=== PATIENT | female | born 1935 | race Caucasian/White ===

== ENCOUNTER 2016-11-15 13:45 | Inpatient (IN) | payer MEDICARE ==
[~2016-11-15] VITALS: Ht 162.6 cm; Wt 89.4 kg
--- NOTE | ~2016-11-15 | DS ---
PATIENT:GISSELLE LUNA :37 MEDICAL RECORD: [id number] DISCHARGE SUMMARY ADMISSION DATE: 11/15/16 DISCHARGE DATE: 11/18/16 DATE OF ADMISSION: 11/15/2016 DATE OF DISCHARGE: 11/18/2016 ADMITTING DIAGNOSES: 1. Lower gastrointestinal bleed. 2. Coronary artery disease. 3. Type 2 diabetes. 4. History of CVA. 5. Acute kidney injury. DISCHARGE DIAGNOSES: 1. Lower gastrointestinal bleed secondary to bleeding from recent biopsy site. 2. Type 2 diabetes. 3. Coronary artery disease. 4. History of cerebrovascular accident. 5. Kidney injury, resolved. 6. Status post recent colonoscopy. CONSULTING PHYSICIANS: Dr. Giles. BRIEF HISTORY AND HOSPITAL COURSE: This is a pleasant 81-year-old white female that presents with chrissy blood per rectum and had a colonoscopy [address] Becerra. She held her Plavix and aspirin prior to the procedure, but resumed it immediately afterwards. She has had some near syncope today, fatigue and weakness, had some left chest pain. She underwent a catheterization with PTCA with Resolute stent back in May per Dr. Haines. She is admitted and serial H&Hs were performed. She did require transfusion of a total of 3 units of packed red cells. I had her seen in consultation by Dr. Giles. She did a repeat colonoscopy. She was found to have stigmata of recent bleeding from biopsy site. Her Plavix and aspirin were held and her H&Hs finally have stabilized. She has had no chrissy bleeding for the last 48 hours. Her H&H is stable. Discharge H&H is 11.4 and 32.8 with a BUN of 16 and creatinine of 1.1. Potassium is a little bit low at 3.1. She will go home with supplementation. I spoke with cardiology communications electrician supervisor, Dr. Martell and he is agreeable withholding Plavix and aspirin for an additional week, then the patient can resume. We will have house-call to see the patient on Sunday or Sunday. Her primary care physician is Dr. Nguyễn. She will need to contact Dr. Becerra for followup appointment with him in the next week or 2. See [facility] for meds at the time of transfer. Again, Plavix and Lasix will be on hold for another week. TRANSINT:[id number] Voice Confirmation ID: [id number] DOCUMENT ID: [id number] DISCHARGE SUMMARY REPORT [id number] GISSELLE LUNA MATTHEW DO CC: BEVERLEY BECERRA MD and WILLIAN NGUYỄN MD [id number] DICTATION DATE: 11/18/16 1156 PROFESSIONAL BUILDER: 11/18/16 2314 DIS IN 11/18/16 [facility] [address] [id number]
[~2016-11-15 13:45] MED LIST: ACCUPRIL40 MG PO; ASPIRIN325 MG PO; BAYER CHEWABLE81 MG PO; BIOTIN5 MG PO; CALCIUM 500 + D1 TAB PO; CARDURA2 MG PO; CATAPRES0.2 MG PO; COSOPT EYE DROPS5 ML LEFT EYE; GLIPIZIDE10 MG PO; GLUCOPHAGE1000 MG PO; HYDROCODON-ACE1 EAC9 PO; IMDUR30 MG PO; ISOSORBIDE MONO30 M1; KLONOPIN0.5 MG PO; LANTUS SOL100 UNIT/1 SQ; LASIX20 MG PO; LEVAQUIN500 MG PO; LUMIGAN 0.01%2.5 ML LEFT EYE; NEURONTIN 300300 MG PO; NORVASC5 MG PO; PLAVIX75 MG PO; PRAVACHOL40 MG PO; PRILOSEC20 MG PO; TOPROL XL25 MG PO; TRANDATE100 MG PO; TYLENOL 325 MG325 MG PO; ULTRAM50 MG PO; VITAMIN D31000 UNIT PO; ZANAFLEX4 MG PO; ZOFRAN4 MG PO; ZYRTEC10 MG PO
[2016-11-15 14:31] LABS: BASOPHILS 0.4 % (0-2); EOSINOPHILS 2.2 % (0-7); HEMATOCRIT 29.2 % (36.0-48.0); IMMATURE GRANULOCYTES 0.1 % (0-5); LYMPHOCYTES 28.3 % (15-50); MCH 30.5 pg (26.0-34.0); MCHC 34.2 g/dL (31.0-37.0); MEAN PLATELET VOLUME 10.3 fL (7.4-10.4); MONOCYTES 5.6 % (2-11); NEUTROPHILS 63.4 % (40-80); PLATELET COUNT 199 10x3/uL (130-400); RBC 3.28 10x6/uL (4.00-5.40); RDW 13.2 % (11.5-14.5)
[2016-11-15 14:42] LABS: APTT 31.9 SECONDS (22.8-39.4); INR 1.23 (0.85-1.17); PROTIME 15.3 SECONDS (11.6-15.0)
[2016-11-15 14:49] LABS: ALBUMIN 2.9 g/dL (3.4-5.0); ANION GAP 15.5 mmol/L (8-16); BILIRUBIN - TOTAL 0.47 mg/dL (0.2-1.3); CALCIUM 8.2 mg/dL (8.5-10.1); CARBON DIOXIDE 24.7 mmol/L (21.0-32.0); CREATININE - SERUM 1.9 mg/dL (0.6-1.3); POTASSIUM - SERUM 4.2 mmol/L (3.5-5.1); PROTEIN - SERUM 5.9 g/dL (6.4-8.2)
[2016-11-15] MEDS ORDERED: VITAMIN A10000 UNIT PO (18:04)
--- NOTE | 2016-11-15 18:05 | NUR ---
PATIENT IN BED WITH IV INTACT. NO COMPLAINTS AT THIS TIME. FAMILY AT BEDSIDE. CALL LIGHT WITHIN REACH. ORIENTED TO ROOM AND CALL LIGHT WITHIN REACH.
[2016-11-15] MEDS ORDERED: MOBIC7.5 MG PO (18:11)
[2016-11-15 19:13] LABS: HEMATOCRIT 27.1 % (36.0-48.0); HEMOGLOBIN 9.3 g/dL (12-16)
[2016-11-15 20:00] VITALS: BP 131/54
[2016-11-15 23:33] LABS: HEMATOCRIT 23.3 % (36.0-48.0); HEMOGLOBIN 8.1 g/dL (12-16)
[2016-11-16 01:39] VITALS: BMI 33.9
--- NOTE | 2016-11-16 07:52 | NUR ---
UNIT 2 OF 2 PRBC'S COMPLETE.PT WITHOUT REACTIONS
--- NOTE | 2016-11-16 08:00 | NUR ---
ASSESSMENT PER FLOW SHEET.PT WITHOUT DISTRESS.DENIES NEEDS.CALL LIGHT IN REACH.FALL PREVENTION IN PLACE WITH LIAT MAT
[2016-11-16 08:21] VITALS: BP 158/84
--- NOTE | 2016-11-16 10:15 | NUR ---
LARGE AMOUNTS OF DARK CLOTS AND BLOOD WITH STOOLS. BP 145/49 HR 66. MONITOR
[2016-11-16 10:58] LABS: EOSINOPHILS 3.5 % (0-7); IMMATURE GRANULOCYTES 0.3 % (0-5); MCH 29.9 pg (26.0-34.0); MCHC 34.7 g/dL (31.0-37.0); MEAN PLATELET VOLUME 10.5 fL (7.4-10.4); MONOCYTES 8.8 % (2-11); NEUTROPHILS 55.4 % (40-80); PLATELET COUNT 165 10x3/uL (130-400); RBC 3.64 10x6/uL (4.00-5.40); RDW 14.5 % (11.5-14.5)
[2016-11-16 11:07] LABS: HEMATOCRIT 31.4 % (36.0-48.0); HEMOGLOBIN 10.9 g/dL (12-16); MCV 86.3 fL (80.0-100.0)
[2016-11-16 11:20] LABS: ALBUMIN 2.9 g/dL (3.4-5.0); ANION GAP 13.2 mmol/L (8-16); BILIRUBIN - TOTAL 1.32 mg/dL (0.2-1.3); CALCIUM 8.2 mg/dL (8.5-10.1); CARBON DIOXIDE 25.8 mmol/L (21.0-32.0); CREATININE - SERUM 1.5 mg/dL (0.6-1.3); PROTEIN - SERUM 6.2 g/dL (6.4-8.2)
[2016-11-16 12:17] VITALS: BP 155/54
--- NOTE | 2016-11-16 12:47 | NUR ---
Patient Name: GISSELLE LUNA Admission Status: ER Accout number: [id number] Admission Date: 11-15-2016 : 1935 Admission Diagnosis: Attending: JAVI ASHBY Current LOS: 1 Anticipated DC Date: 11-20-2016 Planned Disposition: Home Primary Insurance: [facility] Discharge Planning Comments: CM MET WITH PATIENT REGARDING D/C NEEDS AND PLANS. PATIENT STATED SHE LIVES ALONE AND HER DAUGHTER IN LAW (OMAIRA CARROLL)WILL DRIVE HER HOME AT DISCHARGE. PATIENT STATED SHE HAS NO STEPS TO ENTER HOME AND ONE STEP INSIDE. PATIENT STATED SHE IS INDEPENDENT WITH HER CARE AND HAS A BS COMMODE, CANE, GLUCOMETER (CKS DAILY), SHOWER CHAIR, WALKER, AND WHEELCHAIR AT HOME. PATIENTS PCP IS DR. BALDERAS AND USES [facility]. PATIENT DOES NOT WANT HOME HEALTH AT THIS TIME. CM WILL CONTINUE TO FOLLOW PATIENT WITH D/C NEEDS AND PLANS. PCP DR. BALDERAS [facility]- [phone] OMAIRA CARROLL (DAUGHTER IN LAW) [phone] Base Wad Operator Adjuster: Macey Moncada Is the patient Alert and Oriented? Yes 0 * How many steps to enter\exit or inside your home? 1 0 * PCP DR. BALDERAS 0 * Pharmacy [facility] 0 * Preadmission Environment Home Alone 0 * ADLs Independent 0 * Equipment Bedside Commode Cane Glucometer Shower Chair Walker Wheelchair 0 * List name and contact numbers for known caregivers / representatives who currently or will assist patient after discharge: OMAIRA CARROLL (DAUGHTER IN LAW) [phone] 0 * Community resources currently utilized None 0 * Additional services required to return to the preadmission environment? Yes 0 * Can the patient safely return to the preadmission environment? Yes 0 * Has this patient been hospitalized within the prior 30 days at any hospital? No 0 Grand Total: 0
[2016-11-16 13:43] VITALS: Ht 162.6 cm; Wt 89.4 kg
--- NOTE | 2016-11-16 13:52 | NUR ---
SCD'S ON BILATERAL LE
--- NOTE | 2016-11-16 15:38 | NUR ---
BACK FROM GI LAB.PT WITHOUT DISTRESS. AWAKE AND ALERT.DOOR OPEN TO MONITOR
[2016-11-16 17:24] LABS: HEMATOCRIT 29.2 % (36.0-48.0)
--- NOTE | 2016-11-16 18:10 | NUR ---
UNIT 1 OF 2 PRBC'S INITIATED.PT WITHOUT REACTIONS.
[2016-11-17] VITALS: BP 171/76
[2016-11-17 02:02] LABS: HEMATOCRIT 34.1 % (36.0-48.0); HEMOGLOBIN 11.9 g/dL (12-16)
[2016-11-17 04:00] VITALS: BP 181/72
--- NOTE | 2016-11-17 05:00 | NUR ---
PATIENT'S IV LEAKING. D/C IV WITH CATHETER INTACT. PATIENT REFUSED TO GET ANOTHER IV UNTIL SHE TALKS TO THE DOCTOR.
[2016-11-17 07:45] LABS: BASOPHILS 0.4 % (0-2); EOSINOPHILS 3.2 % (0-7); HEMOGLOBIN 11.2 g/dL (12-16); IMMATURE GRANULOCYTES 0.1 % (0-5); LYMPHOCYTES 24.4 % (15-50); MCH 29.9 pg (26.0-34.0); MCV 85.6 fL (80.0-100.0); MEAN PLATELET VOLUME 10.4 fL (7.4-10.4); MONOCYTES 8.6 % (2-11); NEUTROPHILS 63.3 % (40-80); PLATELET COUNT 156 10x3/uL (130-400); RBC 3.74 10x6/uL (4.00-5.40); RDW 14.8 % (11.5-14.5); WBC 6.9 10x3/uL (4.8-10.8)
[2016-11-17 07:59] LABS: ALBUMIN 2.9 g/dL (3.4-5.0); BILIRUBIN - TOTAL 1.71 mg/dL (0.2-1.3); CALCIUM 8.5 mg/dL (8.5-10.1); CARBON DIOXIDE 27.5 mmol/L (21.0-32.0); CREATININE - SERUM 1.2 mg/dL (0.6-1.3); PROTEIN - SERUM 6.1 g/dL (6.4-8.2)
[2016-11-17 08:00] LABS: ANION GAP 11.7 mmol/L (8-16); POTASSIUM - SERUM 3.2 mmol/L (3.5-5.1)
--- NOTE | 2016-11-17 08:00 | NUR ---
ASSESSMENT PER FLOW SHEET.PT WITHOUT DISTRESS.REFUSES IV RESTART THIS AM.REMAINS WITHOUT BLEEDING.FALL PREVENTION IN PLACE WITH LIAT MAT ON AND FUNCTIONING.
[2016-11-17 08:32] VITALS: BP 153/77
[2016-11-17 12:12] VITALS: BP 113/68
[2016-11-17 14:27] LABS: HEMATOCRIT 30.5 % (36.0-48.0); HEMOGLOBIN 10.5 g/dL (12-16)
[2016-11-17 16:04] VITALS: BP 173/76
[2016-11-17 19:03] LABS: HEMATOCRIT 32.7 % (36.0-48.0); HEMOGLOBIN 11.4 g/dL (12-16)
--- NOTE | 2016-11-17 19:40 | NUR ---
REMAINS WITHOUT NEEDS,WITHOUT CHANGE.CONT PLAN OF CARE
[2016-11-17 20:00] VITALS: BP 114/84
[2016-11-18] VITALS: BP 136/70
[2016-11-18 04:00] VITALS: BP 150/89
[2016-11-18 05:35] LABS: BASOPHILS 0.6 % (0-2); EOSINOPHILS 3.4 % (0-7); HEMATOCRIT 32.8 % (36.0-48.0); HEMOGLOBIN 11.4 g/dL (12-16); IMMATURE GRANULOCYTES 0.1 % (0-5); LYMPHOCYTES 31.9 % (15-50); MCHC 34.8 g/dL (31.0-37.0); MCV 86.3 fL (80.0-100.0); MEAN PLATELET VOLUME 10.2 fL (7.4-10.4); MONOCYTES 10.7 % (2-11); NEUTROPHILS 53.3 % (40-80); PLATELET COUNT 158 10x3/uL (130-400); RDW 14.3 % (11.5-14.5); WBC 6.8 10x3/uL (4.8-10.8)
[2016-11-18 05:52] LABS: ALBUMIN 3.1 g/dL (3.4-5.0); ANION GAP 9.7 mmol/L (8-16); BILIRUBIN - TOTAL 1.6 mg/dL (0.2-1.3); CALCIUM 8.9 mg/dL (8.5-10.1); CARBON DIOXIDE 26.4 mmol/L (21.0-32.0); CREATININE - SERUM 1.1 mg/dL (0.6-1.3); POTASSIUM - SERUM 3.1 mmol/L (3.5-5.1); PROTEIN - SERUM 6.3 g/dL (6.4-8.2)
--- NOTE | 2016-11-18 07:00 | NUR ---
REPORT RECIEVED ASSSUMED CARE. PATIENT IN BED WITH NO COMPLAINTS. CALL [facility].
--- NOTE | 2016-11-18 08:00 | NUR ---
ASSESSMENT COMPLETE, VS STABLE. NO COMPLAINTS AT THIS TIME. LEFT ARM WITH OLD IV SITE IN AC RED AND SLIGHT SWELLING. EXPLAINED TO PATIENT TO APPLY ICE PACK. PATIENT STATED IT CAME OUT YESTERDAY. NO OTHER PROBLEMS NOTED AT THIS TIME. CALL LIGHT WITHIN REACH.
[2016-11-18 08:40] VITALS: BP 173/80
[2016-11-18] MEDS ORDERED: KLOR-CON M2020 MEQ PO (11:58)
--- NOTE | 2016-11-18 12:00 | NUR ---
PATIENT SITTING UP EATING AT THIS TIME. NO COMPLAINTS. DENIES NEEDS. CALL LIGHTW ITHIN RILEY.
[2016-11-18 12:39] VITALS: BP 158/70
--- NOTE | 2016-11-18 14:50 | NUR ---
PATIENT RECIEVED DC INSTRUCTIONS. VERBALIZED UNDERSTANDING. NO QUESTIONS AT THIS TIME. FAMILY AT BEDSIDE. TAKEN DOWN TO PRIVATE VEHICLE WITH PERSONAL BELONGINGS VIA WC BY NURSE.
== END 2016-11-18 15:47 | disposition home or self-care (01) | DRG 920 ==
LOC: D.ER 13:45 → D.MS 17:03 → D.M2 17:03 → D.MS 11-18 15:47
PROVIDERS: Emergency Medicine; Internal Medicine Gastroenterology; ADMIT Family Medicine
PROC: 0DJD8ZZ Inspection of Lower Intestinal Tract, Via Natural or Artificial Opening Endoscopic (ICD-10-PCS; principal; 2016-11-16 14:45)
DX: K91.840 Postprocedural hemorrhage of a digestive system organ or structure following a digestive system procedure (principal); N17.9 Acute kidney failure, unspecified; Y84.8 Other medical procedures as the cause of abnormal reaction of the patient, or of later complication, without mention of misadventure at the time of the procedure; R55 Syncope and collapse; E11.65 Type 2 diabetes mellitus with hyperglycemia; I25.10 Atherosclerotic heart disease of native coronary artery without angina pectoris; K64.4 Residual hemorrhoidal skin tags; K64.8 Other hemorrhoids; K63.5 Polyp of colon

== ENCOUNTER → 2016-12-07 09:59 | Outpatient (CLI) | payer MEDICARE ==
[2016-11-16 13:43] VITALS: BMI 33.8
[~2016-12-07 09:59] MED LIST changes: +KLOR-CON M2020 MEQ PO; +MOBIC7.5 MG PO; +VITAMIN A10000 UNIT PO
== END | disposition home or self-care (01) ==
LOC: D.MRI 09:59
DX: R41.3 Other amnesia (principal)

== ENCOUNTER → 2017-01-11 13:01 | Outpatient (CLI) | payer MEDICARE ==
[2016-11-16 13:43] VITALS: BMI 33.8
== END | disposition home or self-care (01) ==
LOC: D.RAD 13:00
DX: K59.00 Constipation, unspecified (principal)

== ENCOUNTER 2017-04-27 15:31 | Inpatient (IN) | payer MEDICARE ==
[~2017-04-27] VITALS: Ht 162.6 cm; Wt 89.1 kg
--- NOTE | ~2017-04-27 | PN ---
PATIENT:GISSELLE LUNA MEDICAL RECORD: [id number] LOCATION:[facility]aser[facility] ADMISSION DATE: 04/27/17 PROGRESS NOTE DATE OF SERVICE: 05/03/2017 SUBJECTIVE: The patient's case was discussed with staff. She has no new complaint. OBJECTIVE: The patient is in good behavioral control and has no thoughts of harming herself or others. She is significantly and fairly severely impaired cognitively. ASSESSMENT: No change in diagnoses. PLAN: The patient has had no ongoing hallucinations. She is going to be transitioned to assisted living tomorrow. Followup will be with her primary care physician. Her nursing home prognosis is guarded. TRANSINT:[id number] Voice Confirmation ID: [id number] DOCUMENT ID: [id number] CORA HERNANDEZ MD at 1348 CC: [id number] DICTATION DATE: 05/03/17 1503 PUBLIC WORKS TECHNICIAN: 05/03/17 1602 DIS IN 05/04/17 [address] [place] [address]
--- NOTE | ~2017-04-27 | PN ---
PATIENT:GISSELLE LUNA MEDICAL RECORD: [id number] LOCATION:VINAY[facility] Glaser112 ADMISSION DATE: 04/27/17 PROGRESS NOTE DATE OF SERVICE: 05/01/2017 SUBJECTIVE: The patient's case was discussed with staff. She has no new complaint. OBJECTIVE: The patient is in good behavioral control with limited insight about her condition. She tolerates her medicines well. ASSESSMENT: No change in diagnoses. PLAN: The patient has had no hallucinations and is in good behavioral control. Her family is making arrangements for her to go to assisted living and I very much agree with this. She can be transitioned out of the hospital in a day or two once the arrangements are made for the assisted living apartment. I have spoken with her about this and she does not object; however, she does object when I tell her she should not drive anymore. TRANSINT:[id number] Voice Confirmation ID: [id number] DOCUMENT ID: [id number] CORA HERNANDEZ MD at 1731 CC: [id number] DICTATION DATE: 05/01/17 1456 INSTRUCTIONAL SUPPORT SERVICES DIRECTOR: 05/01/17 1504 ADM IN [facility] [address] [id number]
--- NOTE | ~2017-04-27 | PSY ---
PATIENT NAME:GISSELLE LUNA MEDICAL RECORD: [id number] : 37 LOCATION:VINAYAK Nielsen ADMISSION DATE: 04/27/17 ACCOUNT: [id number] PSYCHIATRIC EVALUATION DATE OF EVALUATION: 04/28/17 IDENTIFYING DATA: The patient is 81 years old and she is referred to us by Dr. Manzano. HISTORY OF PRESENT ILLNESS: The patient lives alone. Her spouse about 5 years ago. She has become increasingly forgetful and has been having some recent hallucinations. She describes as seeing a little boy whom she identifies as her youngest son. He sometimes in bed with her, he sometimes is just present in the room with her. She denies depressive symptoms, but when asked about individual symptoms of depression, she does report them. She does have a history of diabetes and she is having trouble cooking at home. She says she becomes easily frustrated and is indeed having difficulty finding words to express herself or answer questions appropriately. PAST MEDICAL HISTORY: Significant for diabetes, hypertension, and chronic back pain. PAST PSYCHIATRIC HISTORY: None by her account. She has never been diagnosed with dementia and she has had some mild depressive symptoms, which her primary care doctor has been treating with an SSRI. FAMILY PSYCHIATRIC HISTORY: Unknown. ALLERGIES: SULFA, PENICILLIN, and CODEINE. CURRENT MEDICATIONS: Include Glucotrol, Glucophage, Celexa, Cardura, Norvasc, Lantus, Lasix, Ultram, Klonopin, Accupril, Lopressor, and multiple vitamins. SOCIAL HISTORY: The patient has been twice. Her first after 30 years of marriage. She has 2 adult sons from that marriage, one of them is our current transmission mechanic. The second a few years ago. Obviously, they had no children together. She functioned well socially and occupationally and has no history of drug or alcohol abuse. MENTAL STATUS EXAMINATION: The patient is awake, alert, and oriented to person, place and somewhat to time and situation. Her mood is euthymic and her affect is appropriate. Thought processes are circumstantial. Memory, concentration, and abstraction abilities are at least moderately impaired and she denies any active intent to harm herself or others as well as any overt psychotic symptoms. ASSETS: Supportive living environment. LIABILITIES: Limited insight. DIAGNOSTIC IMPRESSION: AXIS I: Vascular dementia and major depression, mild. AXIS II: None. AXIS III: Hypertension, diabetes. AXIS IV: Moderate stressors. AXIS V: Global assessment of functioning is 35. PLAN: At this time, the patient is admitted to the hospital secondary to significant memory loss, associated with some delusions. She will be comprehensively evaluated from both a medical, psychological, and social standpoint. She will be treated with both mood stabilizing and memory enhancing medications. Her long-term prognosis is guarded. TRANSINT:[id number] Voice Confirmation ID: [id number] DOCUMENT ID: [id number] CORA HERNANDEZ MD at 1355 CC: [id number] DICTATION DATE: 04/28/17 0829 CHEERLEADING COACH: 04/28/17 1110 ADM IN [address] [address]
--- NOTE | ~2017-04-27 | PN ---
PATIENT:GISSELLE LUNA MEDICAL RECORD: [id number] LOCATION:[facility]AK Glaser112 ADMISSION DATE: 04/27/17 PROGRESS NOTE DATE OF SERVICE: 05/04/2017 SUBJECTIVE: No new complaint. OBJECTIVE: The patient has been stable. She is tolerating medications well. She is scheduled for discharge. On exam, mood is euthymic. Affect bland. Speech is terse. Content of thought is unchanged. Sensorium is unchanged. ASSESSMENT: No change in diagnosis. PLAN: 1. Continue current treatment plan. 2. Anticipate discharge today. TRANSINT:[id number] Voice Confirmation ID: [id number] DOCUMENT ID: [id number] TODD GOMEZ III, MD at 1142 CC: [id number] DICTATION DATE: 05/04/17 1211 PROMOTOR GROUP TICKET SALES: 05/04/17 1218 DIS IN 05/04/17 [address] [place] [address]
--- NOTE | ~2017-04-27 | PN ---
PATIENT:GISSELLE LUNA MEDICAL RECORD: [id number] LOCATION:V[facility]AYAK Glaser112 ADMISSION DATE: 04/27/17 PROGRESS NOTE DATE OF SERVICE: 05/02/2017 SUBJECTIVE: The patient's case was discussed with staff. She has no new complaint. OBJECTIVE: The patient is in good behavioral control with no thoughts of harming herself or others. She is tolerating her medications well. ASSESSMENT: No change in diagnoses. PLAN: Supportive and educational interventions were made. [facility] prognosis is guarded. The patient is going to be transitioned to an assisted living center soon. TRANSINT:[id number] Voice Confirmation ID: [id number] DOCUMENT ID: [id number] CORA HERNANDEZ MD at 1459 CC: [id number] DICTATION DATE: 05/02/17 173 HARNESS INSPECTOR: 05/02/17 1817 ADM IN [address] [id number]
--- NOTE | ~2017-04-27 | PN ---
PATIENT:GISSELLE LUNA MEDICAL RECORD: [id number] LOCATION:VINAYAK Glaser112 ADMISSION DATE: 04/27/17 PROGRESS NOTE DATE OF SERVICE: 04/30/2017 SUBJECTIVE: The patient's case was discussed with staff. She has no new complaint. OBJECTIVE: The patient was tested by Dr. Nena Jean and scored 18 out of 30 on the [facility] Cognitive evaluation exam. This places her on the borderline between severe and moderate impairment. Interestingly, she still is oriented. She has not had any psychotic symptoms today. ASSESSMENT: No change in diagnoses. PLAN: I am not going to start this patient on antipsychotic medications. Whatever hallucinatory experiences she was having have stopped since coming into the hospital and it may well be related to her lack of environmental stimulation that she was having some perceptual changes. I spoke with her about her testing today, she is clearly very upset about it. She thinks she is going to be placed in a shelter, but I do not think she needs shelter placement even though she does meet criteria for it. I also do not think she should be living at home independently. I spoke with her about various options such as living with one of her children or relative or perhaps assisted living. She does not want to live with her children because she feels she will be a burden to them. She says she will consider assisted living. She was given quite a lot to digest today and clearly is distressed about it. I am going to let the director social service talk with her family about this situation and hopefully tomorrow, we can have some tentative plan about what we need to do and assuming that she has no additional psychotic symptoms, I do not think it is unreasonable to start looking at a discharge date. TRANSINT:[id number] Voice Confirmation ID: [id number] DOCUMENT ID: [id number] CORA HERNANDEZ MD at 1446 CC: [id number] DICTATION DATE: 04/30/17 1412 EXHAUST MACHINE OPERATOR: 04/30/17 1450 ADM IN [id number] [place] [address]
--- NOTE | ~2017-04-27 | DS ---
PATIENT:GISSELLE LUNA :37 MEDICAL RECORD: [id number] DISCHARGE SUMMARY ADMISSION DATE: 04/27/17 DISCHARGE DATE: 05/04/17 IDENTIFYING DATA: The patient is [id number] and she was admitted to the hospital on a voluntary basis after being referred here by her primary care physician. She does live alone. Her spouse about 5 years ago. Recently, she has become increasingly forgetful and has been having some active hallucinations. She describes this and has seen a little boy whom she identifies as her youngest son. He sometimes is in bed with her and sometimes is just present in the room. She denied depressive symptoms, but when asked about the individual symptoms consistent with depression, she reported many of them. She does have history of diabetes and also has trouble with some of the basic skills she needs to have at home. She is easily frustrated and has often had difficulty finding words when questioned. HOSPITAL COURSE: The patient was admitted to the hospital and fully evaluated from both a medical, psychological, and social standpoint. She had clear evidence of a cognitive impairment and symptoms appear to be consistent with a vascular dementia. She also has clear evidence of the depression that I thought was treating even though it was not severe. She was treated with medications for both of these conditions. She did show improvement and appropriate placement was arranged for her. DISCHARGE DIAGNOSES: AXIS I: 1. Vascular dementia. 2. Major depression, single episode, mild without psychotic features. AXIS II: None. AXIS III: Diabetes and hypertension. AXIS IV: Moderate stressors. AXIS V: Global assessment of functioning is 40. PLAN: At the time of discharge, the patient was in good behavioral control and had no active thoughts of harming herself or others. She did not represent an acute risk to herself or others. Her long-term prognosis is guarded. TRANSINT:[id number] Voice Confirmation ID: [id number] DOCUMENT ID: [id number] CROA HERNANDEZ MD at 1224 CC: [id number] DICTATION DATE: 05/08/17 1448 BOTTLER: 05/08/17 1617 DIS IN 05/04/17 [id number] [place] [address]
[~2017-04-27 15:31] MED LIST changes: -ISOSORBIDE MONO30 M1; +ISOSORBIDE MONO30 M1 PO
[2017-04-27 16:26] VITALS: BP 107/74; BMI 33.8
[2017-04-27] MEDS ORDERED: KLONOPIN0.5 MG PO (17:50)
[2017-04-27] MEDS ORDERED: CELEXA10 MG PO (17:50)
[2017-04-27] MEDS ORDERED: NORVASC10 MG PO (17:50)
[2017-04-27] MEDS ORDERED: COSOPT EYE DROPS5 ML EACH EYE (17:52)
[2017-04-27] MEDS ORDERED: CARDURA2 MG PO (17:52)
[2017-04-27] MEDS ORDERED: FUROSEMIDE20 MG PO (17:54)
[2017-04-27] MEDS ORDERED: GLIPIZIDE10 MG PO (17:55)
[2017-04-27] MEDS ORDERED: ISOSORBIDE MONO30 M1 PO (17:55)
[2017-04-27] MEDS ORDERED: NORMODYNE / TR100 MG PO (17:56)
[2017-04-27] MEDS ORDERED: LANTUS SOL100 UNIT/1 SC (17:56)
[2017-04-27] MEDS ORDERED: GLUCOPHAGE1000 MG PO (17:57)
[2017-04-27] MEDS ORDERED: METOPROLOL TART50 MG PO (17:57)
[2017-04-27] MEDS ORDERED: PROCTOCORT28.35 GM RC (17:58)
[2017-04-27] MEDS ORDERED: ULTRAM50 MG PO (17:59)
[2017-04-27] MEDS ORDERED: ACCUPRIL40 MG PO (17:59)
[2017-04-27] MEDS ORDERED: VITAMIN A10000 UNIT PO (18:01)
[2017-04-27] MEDS ORDERED: VITAMIN D31000 UNIT PO (18:01)
[2017-04-27] MEDS ORDERED: ZYRTEC10 MG PO (18:01)
[2017-04-27 20:22] VITALS: BP 151/65
[2017-04-28 09:25] LABS: BASOPHILS 0.3 % (0-2); EOSINOPHILS 2.6 % (0-7); HEMATOCRIT 40.6 % (36.0-48.0); HEMOGLOBIN 13.7 g/dL (12-16); IMMATURE GRANULOCYTES 0.3 % (0-5); LYMPHOCYTES 29.8 % (15-50); MCH 29.5 pg (26.0-34.0); MCHC 33.7 g/dL (31.0-37.0); MCV 87.5 fL (80.0-100.0); MEAN PLATELET VOLUME 10.3 fL (7.4-10.4); MONOCYTES 7.7 % (2-11); NEUTROPHILS 59.3 % (40-80); PLATELET COUNT 229 10x3/uL (130-400); RBC 4.64 10x6/uL (4.00-5.40); RDW 13.5 % (11.5-14.5); WBC 7.7 10x3/uL (4.8-10.8)
[2017-04-28 09:43] LABS: ALBUMIN 3.2 g/dL (3.4-5.0); ANION GAP 15.9 mmol/L (8-16); BILIRUBIN - TOTAL 0.65 mg/dL (0.2-1.3); CALCIUM 8.9 mg/dL (8.5-10.1); CARBON DIOXIDE 23.8 mmol/L (21.0-32.0); CHOL - HDL RATIO 6.3 ratio (2.3-4.1); CREATININE - SERUM 1.1 mg/dL (0.6-1.3); LDL-HDL RATIO 3.6 ratio (1.5-3.5); POTASSIUM - SERUM 3.7 mmol/L (3.5-5.1); PROTEIN - SERUM 7.6 g/dL (6.4-8.2); THYROID STIMULATING HORMONE 4.84 uIU/mL (0.36-3.74)
[2017-04-28 09:57] VITALS: BP 182/109
[2017-04-28 17:37] LABS: APPEARANCE HAZY (CLEAR); BILIRUBIN NEGATIVE (NEGATIVE); COLOR DK YELLOW (YELLOW); GLUCOSE NEGATIVE (NEGATIVE); KETONE NEGATIVE (NEGATIVE); NITRITE NEGATIVE (NEGATIVE); PROTEIN 1+ mg/dL (NEGATIVE); SPECIFIC GRAVITY 1.025 (1.005-1.020); UROBILINOGEN NORMAL (NORMAL)
[2017-04-28 17:38] LABS: BACTERIA FEW /hpf (NONE SEEN); EPITHELIAL CELLS 0-5 /hpf (0-5)
[2017-04-28 20:01] VITALS: BP 141/70
[2017-04-29 07:00] VITALS: BP 160/91
[2017-04-29 19:30] VITALS: BP 158/87
[2017-04-30 04:06] LABS: VITAMIN D 25 HYDROXY 16.1 ng/mL (30.0-100.0)
[2017-04-30 07:00] VITALS: BP 167/80
[2017-04-30 11:13] LABS: FOLATE (FOLIC ACID) - SERUM 12.2 ng/mL (>3.0)
[2017-04-30 13:51] VITALS: BMI 33.6
[2017-04-30 15:08] VITALS: Ht 162.6 cm; Wt 89.1 kg
[2017-04-30 19:49] VITALS: BP 145/72
[2017-05-01 03:09] LABS: RAPID PLASMA REAGIN Non Reactive (Non Reactive)
[2017-05-01 09:52] VITALS: BP 185/87
[2017-05-01 11:05] VITALS: BP 185/87
[2017-05-01 19:42] VITALS: BP 134/64
[2017-05-02 09:18] VITALS: BP 164/72
[2017-05-02 09:45] VITALS: BP 164/72
[2017-05-02 09:52] VITALS: BP 164/72
[2017-05-02 20:30] VITALS: BP 159/62
[2017-05-03 10:33] VITALS: BP 166/83
[2017-05-03] MEDS ORDERED: PLAVIX75 MG PO (15:05)
[2017-05-03] MEDS ORDERED: FEXOFENADINE HC60 MG PO (15:05)
[2017-05-03] MEDS ORDERED: ISOSORBIDE MONO30 M1 PO (15:06)
[2017-05-03] MEDS ORDERED: VOLTAREN100 GM TOPICAL (15:07)
[2017-05-03] MEDS ORDERED: NAMENDA5 MG PO (15:07)
[2017-05-03] MEDS ORDERED: METAMUCIL FIB1 WAFER PO (15:07)
[2017-05-03] MEDS ORDERED: SYNTHROID25 MCG PO (15:08)
[2017-05-03] MEDS ORDERED: GLUCOPHAGE500 MG PO (15:08)
[2017-05-03] MEDS ORDERED: BACITRACIN 15 G15 GM TOPICAL (15:09)
[2017-05-03] MEDS ORDERED: LIDODERM 5 %1 PATCH TRANSDERM (15:10)
[2017-05-04 09:20] VITALS: BP 169/93
== END 2017-05-04 13:45 | disposition home or self-care (01) | DRG 884 ==
LOC: D.PSYCH 15:31
PROVIDERS: Psychiatry & Neurology Psychiatry
DX: F01.51 Vascular dementia, unspecified severity, with behavioral disturbance (principal); F33.0 Major depressive disorder, recurrent, mild; F41.8 Other specified anxiety disorders; E03.9 Hypothyroidism, unspecified; I10 Essential (primary) hypertension; E11.9 Type 2 diabetes mellitus without complications; I25.10 Atherosclerotic heart disease of native coronary artery without angina pectoris; H40.9 Unspecified glaucoma; K59.09 Other constipation; J30.9 Allergic rhinitis, unspecified; Z74.09 Other reduced mobility; E55.9 Vitamin D deficiency, unspecified; M17.0 Bilateral primary osteoarthritis of knee; M47.819 Spondylosis without myelopathy or radiculopathy, site unspecified; T21.22XA Burn of second degree of abdominal wall, initial encounter; T31.0 Burns involving less than 10% of body surface; X08.8XXA Exposure to other specified smoke, fire and flames, initial encounter

== ENCOUNTER 2017-06-18 10:16 | Inpatient (IN) | payer MEDICARE ==
[~2017-06-18] VITALS: Ht 162.6 cm; Wt 89.5 kg
--- NOTE | ~2017-06-18 | EC ---
PATIENT:GISSELLE LUNA DATE OF SERVICE: 06/20/17 SEX: F MEDICAL RECORD: [id number] DATE OF : 37 LOCATION:D.M2 D.212 AGE OF PATIENT: 81 ADMISSION DATE: 06/20/17 REFERRING PHYSICIAN: INTERPRETING PHYSICIAN: JONATAN HAINES MD ECHOCARDIOGRAM REPORT ECHO CHARGES 4 ECHO COMPLETE Date: 06/19 CLINICAL DIAGNOSIS: ATRIAL FLUTTER ECHOCARDIOGRAPHIC MEASUREMENTS (adult normal given) AC root (d.<3.7cm) 3.8 cm LV Septum d (<1.2 cm> 1.9 cm Valve Excursion 1.7 cm LV Septum (systole) 2.0 cm Left Atria (s.<4.0cm> 4.3 cm LVPW d(<1.2cm) 1.9 cm RV (d.<2.3cm) 3.4 cm LVPW (sytole) 2.0 cm LV diastole(<5.6CM) 4.5 cm MV E-F(>70mm/sec) cm LV systole 3.4 cm LVOT Diameter 1.7 cm MV exc.(>10mm) cm Est.ejection fraction (50-75%) % DOPPLER: LVIT cm/sec A 28.0 cm/sec E 111 cm/sec LA cm/sec RVSP 25 mmHg LVOT 85 cm/sec AOP1/2T m/s Asc. Ao 156 cm/sec RVOT 110 cm/sec RA cm/sec PA 127 cm/sec AV Gradient Peak 9.73 mmHg AV Mean 5.71 mmHg AV Area 1.4 cm MV Gradient Peak 8.32 mmHg MV Mean 2.45 mmHg MV Area cm COMMENTS: Senior Mobile Solutions Architect: Serg IVAN Service Crew Supervisor: 1 Dr. Haines TAPE# PACS Pericardial Effusion N DATE OF SERVICE: PROCEDURE: Echocardiogram. FINDINGS: 1. Left ventricular systolic function is normal. Overall ejection fraction estimated at 55%. 2. The left atrium is enlarged at 4.3 cm. Right atrium and right ventricle chamber sizes are as well mildly dilated. 3. Valvular structures have normal structure and motion. ECHOCARDIOGRAM REPORT [id number] GISSELLE LUNA 4. Doppler interrogation reveals mild aortic insufficiency, mild mitral regurgitation, mild tricuspid regurgitation, no other valvular insufficiency or stenosis. Pulmonary systolic pressure is estimated at 25 mmHg. 5. No evidence of pericardial effusion or left ventricular thrombus. TRANSINT:[id number] Voice Confirmation ID: [id number] DOCUMENT ID: [id number] JONATAN HAINES MD at 1351 CC: [id number] DICTATION DATE: 06/20/17 1127 PRACTICAL NURSING TEACHER: 06/20/17 1353 ADM IN [facility] [address] [id number]
[~2017-06-18 10:16] MED LIST changes: +BACITRACIN 15 G15 GM TOPICAL; +CELEXA10 MG PO; +COSOPT EYE DROPS5 ML EACH EYE; +FEXOFENADINE HC60 MG PO; +FUROSEMIDE20 MG PO; +GLUCOPHAGE500 MG PO; +LANTUS SOL100 UNIT/1 SC; +LIDODERM 5 %1 PATCH TRANSDERM; +METAMUCIL FIB1 WAFER PO; +METOPROLOL TART50 MG PO; +NAMENDA5 MG PO; +NORMODYNE / TR100 MG PO; +NORVASC10 MG PO; +PROCTOCORT28.35 GM RC; +SYNTHROID25 MCG PO; +VOLTAREN100 GM TOPICAL
[2017-06-18 11:24] LABS: BASOPHILS 0.6 % (0-2); EOSINOPHILS 1.5 % (0-7); HEMATOCRIT 42.9 % (36.0-48.0); HEMOGLOBIN 14.8 g/dL (12-16); IMMATURE GRANULOCYTES 0.1 % (0-5); MCHC 34.5 g/dL (31.0-37.0); MEAN PLATELET VOLUME 10.3 fL (7.4-10.4); NEUTROPHILS 61.8 % (40-80); PLATELET COUNT 216 10x3/uL (130-400); RBC 4.93 10x6/uL (4.00-5.40); RDW 13.4 % (11.5-14.5); WBC 6.7 10x3/uL (4.8-10.8)
[2017-06-18 11:36] LABS: ALBUMIN 3.2 g/dL (3.4-5.0); ANION GAP 13.6 mmol/L (8-16); BILIRUBIN - TOTAL 0.7 mg/dL (0.2-1.3); CALCIUM 8.7 mg/dL (8.5-10.1); CREATININE - SERUM 1.1 mg/dL (0.6-1.3); POTASSIUM - SERUM 3.6 mmol/L (3.5-5.1); PROTEIN - SERUM 7.4 g/dL (6.4-8.2)
[2017-06-18 11:42] LABS: APPEARANCE HAZY (CLEAR); BILIRUBIN NEGATIVE (NEGATIVE); COLOR DK YELLOW (YELLOW); GLUCOSE 50 mg/dL (NEGATIVE); KETONE NEGATIVE (NEGATIVE); NITRITE NEGATIVE (NEGATIVE); PROTEIN 3+ mg/dL (NEGATIVE)
[2017-06-18 11:43] LABS: BACTERIA MODERATE /hpf (NONE SEEN); EPITHELIAL CELLS 0-5 /hpf (0-5); GRANULAR CAST RARE /lpf (NONE SEEN); MUCUS >1+ /lpf (NONE SEEN); WHITE CELLS - URINE 0-5 /hpf (0-5)
[2017-06-18 12:37] LABS: INR 1.08 (0.85-1.17); PROTIME 13.6 SECONDS (11.6-15.0)
[2017-06-18 12:38] LABS: APTT 33.8 SECONDS (22.8-39.4)
[2017-06-18] MEDS ORDERED: LUMIGAN 0.01%2.5 ML LEFT EYE (20:46)
[2017-06-18] MEDS ORDERED: FLUTICASONE PRO16 GM NASAL (20:48)
[2017-06-18] MEDS ORDERED: FUROSEMIDE20 MG PO (20:55)
[2017-06-18] MEDS ORDERED: BETAPACE 80 MG80 MG PO (20:57)
[2017-06-18 21:23] VITALS: BP 150/110
[2017-06-19 00:39] VITALS: BMI 33.9
[2017-06-19 02:34] VITALS: BP 153/109
[2017-06-19 05:28] VITALS: BP 102/70
[2017-06-19 05:43] LABS: BASOPHILS 0.5 % (0-2); EOSINOPHILS 2.6 % (0-7); HEMATOCRIT 40.8 % (36.0-48.0); HEMOGLOBIN 13.8 g/dL (12-16); IMMATURE GRANULOCYTES 0.2 % (0-5); LYMPHOCYTES 36.3 % (15-50); MCH 29.5 pg (26.0-34.0); MCHC 33.8 g/dL (31.0-37.0); MCV 87.2 fL (80.0-100.0); MEAN PLATELET VOLUME 10.5 fL (7.4-10.4); MONOCYTES 8.2 % (2-11); NEUTROPHILS 52.2 % (40-80); PLATELET COUNT 187 10x3/uL (130-400); RBC 4.68 10x6/uL (4.00-5.40); RDW 13.3 % (11.5-14.5); WBC 5.8 10x3/uL (4.8-10.8)
[2017-06-19 06:03] LABS: CALCIUM 8.2 mg/dL (8.5-10.1); CARBON DIOXIDE 24.5 mmol/L (21.0-32.0); CREATININE - SERUM 0.9 mg/dL (0.6-1.3); POTASSIUM - SERUM 3.5 mmol/L (3.5-5.1)
[2017-06-19 08:35] VITALS: BP 152/89
[2017-06-19 11:35] VITALS: BP 165/109
[2017-06-19 20:00] VITALS: BP 146/76
[2017-06-20 04:00] VITALS: BP 143/76
[2017-06-20 07:40] LABS: BASOPHILS 0.3 % (0-2); EOSINOPHILS 2.1 % (0-7); HEMATOCRIT 42.7 % (36.0-48.0); HEMOGLOBIN 14.7 g/dL (12-16); IMMATURE GRANULOCYTES 0.2 % (0-5); LYMPHOCYTES 34.7 % (15-50); MCH 29.8 pg (26.0-34.0); MCHC 34.4 g/dL (31.0-37.0); MCV 86.6 fL (80.0-100.0); MEAN PLATELET VOLUME 10.2 fL (7.4-10.4); MONOCYTES 7.8 % (2-11); NEUTROPHILS 54.9 % (40-80); PLATELET COUNT 199 10x3/uL (130-400); RBC 4.93 10x6/uL (4.00-5.40); RDW 13.3 % (11.5-14.5); WBC 6.6 10x3/uL (4.8-10.8)
[2017-06-20 08:00] VITALS: BP 162/92
[2017-06-20 08:17] LABS: ANION GAP 12.6 mmol/L (8-16); CALCIUM 9.1 mg/dL (8.5-10.1); CARBON DIOXIDE 27.2 mmol/L (21.0-32.0); CREATININE - SERUM 0.9 mg/dL (0.6-1.3); POTASSIUM - SERUM 3.8 mmol/L (3.5-5.1)
[2017-06-20 11:39] VITALS: BP 164/82
[2017-06-20 15:52] VITALS: BP 149/96
[2017-06-20 20:58] VITALS: BP 173/85
[2017-06-21 05:58] VITALS: BP 118/74
[2017-06-21 07:49] VITALS: BP 153/96
[2017-06-21 10:57] VITALS: BP 143/82
[2017-06-21 13:06] VITALS: Ht 162.6 cm; Wt 89.5 kg
[2017-06-21 15:11] VITALS: BP 131/79
[2017-06-21 21:42] VITALS: BP 147/56; BP 160/96
[2017-06-22 02:01] VITALS: BP 151/70
[2017-06-22 05:32] VITALS: BP 186/62
[2017-06-22 07:40] VITALS: BP 129/72
[2017-06-22 11:52] VITALS: BP 148/68
[2017-06-22 15:24] VITALS: BP 136/76
[2017-06-22 20:00] VITALS: BP 152/77
[2017-06-23 01:00] VITALS: BP 173/60
[2017-06-23 04:00] VITALS: BP 173/76
[2017-06-23 05:42] LABS: BASOPHILS 0.6 % (0-2); EOSINOPHILS 3.2 % (0-7); HEMATOCRIT 40.7 % (36.0-48.0); HEMOGLOBIN 14.1 g/dL (12-16); IMMATURE GRANULOCYTES 0.2 % (0-5); LYMPHOCYTES 35.5 % (15-50); MCH 29.9 pg (26.0-34.0); MCHC 34.6 g/dL (31.0-37.0); MCV 86.4 fL (80.0-100.0); MEAN PLATELET VOLUME 10.4 fL (7.4-10.4); MONOCYTES 8.3 % (2-11); NEUTROPHILS 52.2 % (40-80); PLATELET COUNT 198 10x3/uL (130-400); RBC 4.71 10x6/uL (4.00-5.40); RDW 13.3 % (11.5-14.5); WBC 6.5 10x3/uL (4.8-10.8)
[2017-06-23 05:51] LABS: ANION GAP 14.5 mmol/L (8-16); CALCIUM 8.7 mg/dL (8.5-10.1); CARBON DIOXIDE 24.9 mmol/L (21.0-32.0); POTASSIUM - SERUM 3.4 mmol/L (3.5-5.1)
[2017-06-23 09:14] VITALS: BP 175/79
[2017-06-23 12:23] VITALS: BP 176/78
[2017-06-23 16:39] VITALS: BP 128/69
[2017-06-23 23:02] VITALS: BP 178/76
[2017-06-24 05:48] VITALS: BP 181/82
[2017-06-24 08:02] VITALS: BP 181/72
[2017-06-24 11:16] VITALS: BP 132/60
[2017-06-24 14:01] LABS: ANION GAP 16.9 mmol/L (8-16); CALCIUM 8.8 mg/dL (8.5-10.1); CARBON DIOXIDE 21.8 mmol/L (21.0-32.0); MAGNESIUM - SERUM 1.9 mg/dL (1.8-2.4); POTASSIUM - SERUM 3.7 mmol/L (3.5-5.1); THYROID STIMULATING HORMONE 1.58 uIU/mL (0.36-3.74)
[2017-06-24 15:01] VITALS: BP 125/71
[2017-06-24 20:00] VITALS: BP 163/70; BP 96/53
[2017-06-25] VITALS: BP 181/72
[2017-06-25 04:00] VITALS: BP 176/71
[2017-06-25 09:17] VITALS: BP 197/89
[2017-06-25 10:44] VITALS: BP 172/76
[2017-06-25 15:17] VITALS: BP 168/79
[2017-06-25 20:49] VITALS: BP 123/75
[2017-06-26 01:03] VITALS: BP 138/57
[2017-06-26 05:01] VITALS: BP 173/61
[2017-06-26 07:46] VITALS: BP 142/71
[2017-06-26 10:36] VITALS: BP 136/66
[2017-06-26 12:15] LABS: BASOPHILS 0.6 % (0-2); HEMATOCRIT 42.7 % (36.0-48.0); IMMATURE GRANULOCYTES 0.2 % (0-5); LYMPHOCYTES 34.4 % (15-50); MCH 30.2 pg (26.0-34.0); MCHC 35.1 g/dL (31.0-37.0); MCV 85.9 fL (80.0-100.0); MEAN PLATELET VOLUME 10.1 fL (7.4-10.4); MONOCYTES 8.6 % (2-11); NEUTROPHILS 53.2 % (40-80); PLATELET COUNT 210 10x3/uL (130-400); RBC 4.97 10x6/uL (4.00-5.40); RDW 13.2 % (11.5-14.5); WBC 6.3 10x3/uL (4.8-10.8)
[2017-06-26 12:40] LABS: ALBUMIN 3.2 g/dL (3.4-5.0); BILIRUBIN - TOTAL 0.66 mg/dL (0.2-1.3); CALCIUM 9.5 mg/dL (8.5-10.1); CARBON DIOXIDE 25.5 mmol/L (21.0-32.0); CREATININE - SERUM 1.1 mg/dL (0.6-1.3); POTASSIUM - SERUM 3.5 mmol/L (3.5-5.1); PROTEIN - SERUM 7.5 g/dL (6.4-8.2)
[2017-06-26 16:15] VITALS: BP 124/47
[2017-06-26 20:00] VITALS: BP 180/85
[2017-06-27] VITALS: BP 158/65
[2017-06-27 04:00] VITALS: BP 188/66
[2017-06-27 05:55] LABS: BASOPHILS 0.5 % (0-2); EOSINOPHILS 3.1 % (0-7); HEMATOCRIT 40.2 % (36.0-48.0); IMMATURE GRANULOCYTES 0.2 % (0-5); LYMPHOCYTES 43.3 % (15-50); MCH 29.9 pg (26.0-34.0); MCHC 34.8 g/dL (31.0-37.0); MCV 85.7 fL (80.0-100.0); MEAN PLATELET VOLUME 10.6 fL (7.4-10.4); MONOCYTES 9.2 % (2-11); NEUTROPHILS 43.7 % (40-80); PLATELET COUNT 185 10x3/uL (130-400); RBC 4.69 10x6/uL (4.00-5.40); RDW 13.3 % (11.5-14.5); WBC 5.9 10x3/uL (4.8-10.8)
[2017-06-27 06:16] LABS: ANION GAP 14.2 mmol/L (8-16); BILIRUBIN - TOTAL 0.6 mg/dL (0.2-1.3); CREATININE - SERUM 1.1 mg/dL (0.6-1.3); POTASSIUM - SERUM 3.2 mmol/L (3.5-5.1); PROTEIN - SERUM 6.8 g/dL (6.4-8.2)
[2017-06-27 08:53] VITALS: BP 153/65
[2017-06-27] MEDS ORDERED: ALDACTONE25 MG PO (09:47)
[2017-06-27] MEDS ORDERED: ASPIRIN EC81 M1 PO (09:49)
[2017-06-27] MEDS ORDERED: KLOR-CON M2020 MEQ PO (09:51)
[2017-06-27] MEDS ORDERED: GLUCOPHAGE500 MG PO (09:55)
== END 2017-06-27 15:56 | DRG 309 ==
LOC: D.ER 10:16 → OBSVTIME 13:40 → D.EDHOLD 13:40 → D.M2 13:40 → D.EDHOLD 13:40 → D.M2 13:40
PROVIDERS: Emergency Medicine; Family Medicine; Internal Medicine Nephrology
DX: I48.91 Unspecified atrial fibrillation (principal); N39.0 Urinary tract infection, site not specified; G45.9 Transient cerebral ischemic attack, unspecified; I48.92 Unspecified atrial flutter; R40.2412 Glasgow coma scale score 13-15, at arrival to emergency department; E78.1 Pure hyperglyceridemia; I25.10 Atherosclerotic heart disease of native coronary artery without angina pectoris; E03.9 Hypothyroidism, unspecified; F41.8 Other specified anxiety disorders; E78.5 Hyperlipidemia, unspecified; G30.9 Alzheimer's disease, unspecified; F02.80 Dementia in other diseases classified elsewhere, unspecified severity, without behavioral disturbance, psychotic disturbance, mood disturbance, and anxiety; I10 Essential (primary) hypertension; E11.9 Type 2 diabetes mellitus without complications; Z86.73 Personal history of transient ischemic attack (TIA), and cerebral infarction without residual deficits

== ENCOUNTER 2017-07-05 12:57 | Inpatient (IN) | payer MEDICARE ==
[~2017-07-05] VITALS: Ht 162.6 cm; Wt 85.2 kg
[~2017-07-05 12:57] MED LIST changes: +ALDACTONE25 MG PO; +ASPIRIN EC81 M1 PO; +BETAPACE 80 MG80 MG PO; +FLUTICASONE PRO16 GM NASAL
[2017-07-05 13:38] LABS: BASOPHILS 0.6 % (0-2); EOSINOPHILS 2.8 % (0-7); HEMATOCRIT 41.5 % (36.0-48.0); HEMOGLOBIN 14.6 g/dL (12-16); LYMPHOCYTES 36.1 % (15-50); MCH 30.5 pg (26.0-34.0); MCHC 35.2 g/dL (31.0-37.0); MCV 86.8 fL (80.0-100.0); MEAN PLATELET VOLUME 10.7 fL (7.4-10.4); MONOCYTES 10.2 % (2-11); NEUTROPHILS 50.3 % (40-80); PLATELET COUNT 215 10x3/uL (130-400); RBC 4.78 10x6/uL (4.00-5.40); RDW 13.4 % (11.5-14.5); WBC 7.3 10x3/uL (4.8-10.8)
[2017-07-05 14:00] LABS: APTT 33.8 SECONDS (22.8-39.4); INR 1.13 (0.85-1.17)
[2017-07-05 14:04] LABS: ALBUMIN 3.3 g/dL (3.4-5.0); ANION GAP 14.8 mmol/L (8-16); BILIRUBIN - TOTAL 0.8 mg/dL (0.2-1.3); CALCIUM 9.3 mg/dL (8.5-10.1); CARBON DIOXIDE 24.7 mmol/L (21.0-32.0); CREATININE - SERUM 0.9 mg/dL (0.6-1.3); POTASSIUM - SERUM 4.5 mmol/L (3.5-5.1); PROTEIN - SERUM 7.7 g/dL (6.4-8.2)
[2017-07-05 18:40] VITALS: BP 210/100; BMI 32.7
[2017-07-05 21:23] VITALS: BP 174/90
[2017-07-06 01:38] VITALS: BP 189/82
[2017-07-06 04:04] LABS: CKMB 0.5 U/L (0.0-3.6); CREATINE KINASE 149 UL (21-215)
[2017-07-06 04:11] LABS: TROPONIN-I 0.148 ng/mL (0.000-0.060)
[2017-07-06 04:53] VITALS: BP 171/74
[2017-07-06 05:15] LABS: BASOPHILS 0.6 % (0-2); EOSINOPHILS 2.5 % (0-7); IMMATURE GRANULOCYTES 0.5 % (0-5); LYMPHOCYTES 36.2 % (15-50); MCH 29.7 pg (26.0-34.0); MCHC 34.1 g/dL (31.0-37.0); MCV 86.9 fL (80.0-100.0); MEAN PLATELET VOLUME 10.5 fL (7.4-10.4); MONOCYTES 6.8 % (2-11); NEUTROPHILS 53.4 % (40-80); PLATELET COUNT 213 10x3/uL (130-400); RBC 4.72 10x6/uL (4.00-5.40); RDW 13.2 % (11.5-14.5); WBC 6.3 10x3/uL (4.8-10.8)
[2017-07-06 05:32] LABS: ALBUMIN 3.2 g/dL (3.4-5.0); ANION GAP 14.9 mmol/L (8-16); BILIRUBIN - TOTAL 0.58 mg/dL (0.2-1.3); CALCIUM 9.2 mg/dL (8.5-10.1); CARBON DIOXIDE 25.1 mmol/L (21.0-32.0); CHOL - HDL RATIO 6.8 ratio (2.3-4.1); CREATININE - SERUM 0.9 mg/dL (0.6-1.3); LDL-HDL RATIO 2.5 ratio (1.5-3.5)
[2017-07-06 09:09] VITALS: BP 178/81
[2017-07-06 10:20] VITALS: BMI 32.2
[2017-07-06 11:45] LABS: CKMB 0.7 U/L (0.0-3.6); CREATINE KINASE 135 UL (21-215); TROPONIN-I 0.149 ng/mL (0.000-0.060)
[2017-07-06 11:53] VITALS: BP 163/70
[2017-07-06 12:26] VITALS: Ht 162.6 cm; Wt 85.2 kg
[2017-07-06 16:24] LABS: CKMB 1.7 U/L (0.0-3.6); CREATINE KINASE 129 UL (21-215)
[2017-07-06 16:28] LABS: TROPONIN-I 0.149 ng/mL (0.000-0.060)
[2017-07-06 16:50] VITALS: BP 173/83
[2017-07-06 22:57] VITALS: BP 195/75
[2017-07-07 05:19] LABS: BASOPHILS 0.3 % (0-2); EOSINOPHILS 1.5 % (0-7); HEMATOCRIT 42.6 % (36.0-48.0); HEMOGLOBIN 14.8 g/dL (12-16); IMMATURE GRANULOCYTES 0.1 % (0-5); LYMPHOCYTES 33.8 % (15-50); MCH 30.3 pg (26.0-34.0); MCHC 34.7 g/dL (31.0-37.0); MCV 87.3 fL (80.0-100.0); MEAN PLATELET VOLUME 10.7 fL (7.4-10.4); MONOCYTES 6.8 % (2-11); NEUTROPHILS 57.5 % (40-80); PLATELET COUNT 239 10x3/uL (130-400); RBC 4.88 10x6/uL (4.00-5.40); RDW 13.4 % (11.5-14.5); WBC 7.3 10x3/uL (4.8-10.8)
[2017-07-07 05:45] LABS: ANION GAP 16.4 mmol/L (8-16); CALCIUM 10.1 mg/dL (8.5-10.1); POTASSIUM - SERUM 4.4 mmol/L (3.5-5.1)
[2017-07-07 05:58] VITALS: BP 131/89
[2017-07-07 08:33] VITALS: BP 191/73
[2017-07-07 11:58] VITALS: BP 178/73
[2017-07-07 16:44] VITALS: BP 180/84
[2017-07-07 21:57] VITALS: BP 229/97
[2017-07-08 05:23] LABS: INR 1.33 (0.85-1.17)
[2017-07-08 05:26] LABS: BASOPHILS 0.8 % (0-2); EOSINOPHILS 1.7 % (0-7); HEMATOCRIT 40.9 % (36.0-48.0); HEMOGLOBIN 13.9 g/dL (12-16); IMMATURE GRANULOCYTES 0.2 % (0-5); LYMPHOCYTES 35.7 % (15-50); MCH 29.8 pg (26.0-34.0); MCV 87.8 fL (80.0-100.0); MEAN PLATELET VOLUME 10.5 fL (7.4-10.4); MONOCYTES 7.2 % (2-11); NEUTROPHILS 54.4 % (40-80); PLATELET COUNT 210 10x3/uL (130-400); RBC 4.66 10x6/uL (4.00-5.40); RDW 13.3 % (11.5-14.5); WBC 6.5 10x3/uL (4.8-10.8)
[2017-07-08 05:38] LABS: ANION GAP 13.3 mmol/L (8-16); CALCIUM 9.3 mg/dL (8.5-10.1); CARBON DIOXIDE 24.5 mmol/L (21.0-32.0); POTASSIUM - SERUM 3.8 mmol/L (3.5-5.1)
[2017-07-08 06:17] VITALS: BP 201/74
[2017-07-08 08:18] VITALS: BP 157/66
[2017-07-08 12:28] VITALS: BP 180/83
[2017-07-08 16:30] VITALS: BP 162/70
[2017-07-09 00:58] VITALS: BP 179/101
[2017-07-09 04:57] LABS: BASOPHILS 0.5 % (0-2); HEMATOCRIT 40.7 % (36.0-48.0); HEMOGLOBIN 13.9 g/dL (12-16); IMMATURE GRANULOCYTES 0.2 % (0-5); LYMPHOCYTES 41.4 % (15-50); MCH 29.7 pg (26.0-34.0); MCHC 34.2 g/dL (31.0-37.0); MEAN PLATELET VOLUME 10.3 fL (7.4-10.4); MONOCYTES 8.5 % (2-11); NEUTROPHILS 47.4 % (40-80); PLATELET COUNT 200 10x3/uL (130-400); RBC 4.68 10x6/uL (4.00-5.40); RDW 13.3 % (11.5-14.5)
[2017-07-09 05:10] LABS: ANION GAP 13.3 mmol/L (8-16); CALCIUM 8.9 mg/dL (8.5-10.1); CARBON DIOXIDE 25.3 mmol/L (21.0-32.0); CREATININE - SERUM 0.9 mg/dL (0.6-1.3); POTASSIUM - SERUM 3.6 mmol/L (3.5-5.1)
[2017-07-09 05:18] LABS: INR 1.43 (0.85-1.17); PROTIME 16.9 SECONDS (11.6-15.0)
[2017-07-09 06:33] VITALS: BP 169/87
[2017-07-09 09:13] VITALS: BP 178/82
[2017-07-09 12:46] VITALS: BP 162/72
[2017-07-09 16:43] VITALS: BP 188/55
[2017-07-09 20:00] VITALS: BP 191/77
[2017-07-10] VITALS: BP 209/86
[2017-07-10 04:00] VITALS: BP 197/81
[2017-07-10 06:17] LABS: BASOPHILS 0.4 % (0-2); HEMATOCRIT 39.7 % (36.0-48.0); HEMOGLOBIN 13.8 g/dL (12-16); IMMATURE GRANULOCYTES 0.1 % (0-5); LYMPHOCYTES 30.4 % (15-50); MCH 30.4 pg (26.0-34.0); MCHC 34.8 g/dL (31.0-37.0); MCV 87.4 fL (80.0-100.0); MEAN PLATELET VOLUME 10.5 fL (7.4-10.4); MONOCYTES 7.8 % (2-11); NEUTROPHILS 59.3 % (40-80); PLATELET COUNT 197 10x3/uL (130-400); RBC 4.54 10x6/uL (4.00-5.40); RDW 13.1 % (11.5-14.5)
[2017-07-10 06:20] LABS: WBC 7.7 10x3/uL (4.8-10.8)
[2017-07-10 06:30] LABS: PROTIME 19.9 SECONDS (11.6-15.0)
[2017-07-10 06:32] LABS: INR 1.75 (0.85-1.17)
[2017-07-10 06:49] LABS: CALCIUM 9.2 mg/dL (8.5-10.1); CARBON DIOXIDE 23.7 mmol/L (21.0-32.0); CREATININE - SERUM 0.9 mg/dL (0.6-1.3); POTASSIUM - SERUM 3.7 mmol/L (3.5-5.1)
[2017-07-10 08:33] VITALS: BP 180/96
[2017-07-10] MEDS ORDERED: COUMADIN5 MG PO (10:31)
[2017-07-10 11:35] VITALS: BP 150/72
[2017-07-10 15:38] VITALS: BP 160/80
[2017-07-10] MEDS ORDERED: PROCARDIA XL PO (16:40)
== END 2017-07-10 18:08 | DRG 65 ==
LOC: D.ER 12:57 → D.EDHOLD 14:43 → OBSVTIME 14:43 → D.M2 14:43
PROVIDERS: Anesthesiology; Emergency Medicine; Family Medicine; Internal Medicine Nephrology
DX: I63.9 Cerebral infarction, unspecified (principal); G81.94 Hemiplegia, unspecified affecting left nondominant side; R47.01 Aphasia; I10 Essential (primary) hypertension; I25.10 Atherosclerotic heart disease of native coronary artery without angina pectoris; F41.8 Other specified anxiety disorders; I48.0 Paroxysmal atrial fibrillation; G30.9 Alzheimer's disease, unspecified; F02.80 Dementia in other diseases classified elsewhere, unspecified severity, without behavioral disturbance, psychotic disturbance, mood disturbance, and anxiety; E78.5 Hyperlipidemia, unspecified; Z74.09 Other reduced mobility; I08.1 Rheumatic disorders of both mitral and tricuspid valves; E03.9 Hypothyroidism, unspecified; R40.2353 Coma scale, best motor response, localizes pain, at hospital admission; R40.2143 Coma scale, eyes open, spontaneous, at hospital admission; R40.2243 Coma scale, best verbal response, confused conversation, at hospital admission; Z95.5 Presence of coronary angioplasty implant and graft; E11.65 Type 2 diabetes mellitus with hyperglycemia

== ENCOUNTER 2017-07-10 13:10 | Inpatient (IN) | payer MEDICARE ==
--- NOTE | ~2017-07-10 | RHP ---
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 HISTORY OF PRESENT ILLNESS: The patient is admitted to inpatient rehab for stroke/acute ischemia in the right cerebellar hemisphere. She is an 81-year-old female patient with history of hypertension, coronary artery disease, status post stent placement, AFib, diabetes, depression, anxiety and Alzheimer's, who presented to the ER with complaints of sudden onset of left-sided weakness and slurred speech on 07/06/2017. She was recently discharged to [place] on 06/27/2017 after being hospitalized for dizziness and blurred vision. She also had a GI bleed. She has been reluctant to start any type of anticoagulation. She was admitted to the acute hospital for further evaluation. MRI was found to have acute ischemia in the right cerebellar hemisphere with vascular distribution of the superior cerebellar artery. In all likelihood, this occurred when she converted from atrial fib to sinus rhythm. Her EKG confirmed she was in sinus rhythm. 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 She has been in atrial fib for the past few months. She has had some issues with rate control, on arrival to the Emergency Room, she was in a sinus rhythm. She had had hypertension during her acute hospital stay and had been followed by cardiology who adjusted her blood pressure medicine. She is on telemetry, has noted some sinus sylvia. She lives in an apartment with an assisted living to the point of this recent hospitalization, was moderately independent with use of rolling walker for mobility and was independent with ADLs, currently min assist to max assist for mobility and mod assist and total assist at times. She has been followed by OT, PT and speech therapy throughout her stay. She and her family want her to discharge back to her apartment and get back to close to her prior level of function as possible. Comorbidities in this patient include oropharyngeal dysphagia, CVA, TIA, aphasia, hyperlipidemia, atrial fib, impaired functional mobility, balance, gait, and endurance; chronic hypothyroidism, hypertriglyceridemia, hypertension, type 2 diabetes, chronic depression, acute vascular dementia, acute kidney injury, gastroesophageal bleeding. PAST MEDICAL HISTORY: Significant for weakness, cataracts, glaucoma, allergies, diabetes, vitamin D deficiency, hypertension, atrial fib, coronary artery disease, ovarian and breast cancer, diarrhea, depression and anxiety, Alzheimer's, chronic back pain. PAST SURGICAL HISTORY: Includes hysterectomy and mastectomy. ALLERGIES: PENICILLIN, SULFA AND CODEINE. MEDICATIONS: Current medications include warfarin 5 mg daily, Vitamin A 10,000 units daily. She is on nifedipine 90 mg daily of the XL. She is on Lidoderm HISTORY AND PHYSICAL [id number] LUNA,GISSELLE YANEZ patch as needed, Synthroid 25 mcg daily, isosorbide 30 mg daily, glipizide 10 mg b.i.d., Flonase 1 spray daily, Cardura 1 mg daily, vitamin D 1000 units daily, aspirin 81 mg daily. She is on Cosopt eyedrops b.i.d., sotalol 80 mg b.i.d., quinapril 40 mg b.i.d., Pravachol 40 mg at bedtime, potassium 20 mEq daily, metoprolol 50 mg b.i.d., Lasix 20 mg as needed for edema, Karla 60 mg b.i.d., Lumigan eye drops 1 drop at bedtime, and MiraLax 17 grams in 8 ounces of water daily. HABITS: No alcohol or tobacco use. FAMILY HISTORY: Noncontributory. SOCIAL HISTORY: The patient once again hopes to return back to her apartment and get back to her prior level of functioning. REVIEW OF SYSTEMS: GENERAL: Does complain of weakness and fatigue. HEENT: Denies cold, cough, or congestion. CARDIOVASCULAR: Denies chest pain. PHYSICAL EXAMINATION: VITAL SIGNS: Stable, afebrile. GENERAL: Elderly female, in no acute distress, alert upon exam. HEENT: Normocephalic and atraumatic. Mucosa moist. NECK: Supple. No lymphadenopathy. LUNGS: Clear at this time. HEART: Irregular rate and rhythm. ABDOMEN: Benign. EXTREMITIES: No clubbing, cyanosis, or edema. NEUROLOGIC: She does have noted left-sided weakness. LABORATORY DATA: White count is 6.5, H&H of 14 and 41, and platelet count is 211. INR is 1.75. Sodium 142, potassium 3.5, BUN and creatinine of 21 and 1.1 and blood sugar is noted to be 147. ASSESSMENT: This is an 81-year-old female patient admitted to the rehab with a working diagnosis of CVA. The patient has potential to make improvement. We instituted the following multidisciplinary therapies including but not limited to physical, occupational, respiratory, speech, nutritional services, prosthetics and orthotics. Given her complex medical condition and risk for more complications, rehabilitation services cannot be provided at a lower level of care such as a penitentiary facility. PLAN: 1. Admit to [facility] rehab for intensive inpatient therapy to include the following disciplines: A. Physical therapy to improve gait, all transfer skills and bed mobility to a modified independent level. B. Occupational therapy to improve activities of daily living to a modified independent level. C. Case management to assist with discharge planning and placement options. D. Nutrition to assist with nutritional needs. E. Rehabilitation nursing to assist in monitoring the patient's underlying medical condition and to assist with any type of bowel or bladder management. 2. The patient's current medication and medical care will be continued. HISTORY AND PHYSICAL [id number] GISSELLE LUNA 3. The patient will be placed on standard fall precautions. 4. The patient's estimated length of stay is approximately 7-10 days. 5. Discuss this patient during care team staff meeting this week. TRANSINT:[id number] Voice Confirmation ID: [id number] DOCUMENT ID: [id number] TONY notes whether there has been none or any medical/functional change since admission: - No change since prescreen. TONY attests patient continues to be appropriate for IRF: - Continues to be appropriate. JESUS MANUEL CONNORS MD at 1315 CC: [id number] DICTATION DATE: 07/11/17 0915 POWDER WORKER: 07/11/17 1238 ADM IN [facility] [address] [place] [address]
[~2017-07-10 13:10] MED LIST changes: +COUMADIN5 MG PO
[2017-07-10] MEDS ORDERED: PROCARDIA XL PO (16:40)
[2017-07-10 19:00] VITALS: BP 158/70
[2017-07-10 21:36] LABS: INR 2.22 (0.85-1.17)
[2017-07-11 08:20] VITALS: BP 136/62
[2017-07-11 08:33] LABS: BASOPHILS 0.6 % (0-2); EOSINOPHILS 2.6 % (0-7); HEMATOCRIT 41.3 % (36.0-48.0); HEMOGLOBIN 14.8 g/dL (12-16); LYMPHOCYTES 32.9 % (15-50); MCH 30.6 pg (26.0-34.0); MCHC 35.8 g/dL (31.0-37.0); MCV 85.5 fL (80.0-100.0); NEUTROPHILS 56.9 % (40-80); PLATELET COUNT 211 10x3/uL (130-400); RBC 4.83 10x6/uL (4.00-5.40); RDW 13.1 % (11.5-14.5); WBC 6.5 10x3/uL (4.8-10.8)
[2017-07-11 08:44] LABS: PROTIME 19.9 SECONDS (11.6-15.0)
[2017-07-11 08:46] LABS: ANION GAP 14.8 mmol/L (8-16); CARBON DIOXIDE 26.7 mmol/L (21.0-32.0); CREATININE - SERUM 1.1 mg/dL (0.6-1.3); POTASSIUM - SERUM 3.5 mmol/L (3.5-5.1)
[2017-07-11 08:50] LABS: INR 1.75 (0.85-1.17)
[2017-07-11 13:24] VITALS: Ht 162.6 cm
[2017-07-11 19:00] VITALS: BP 109/45
[2017-07-12 06:21] LABS: INR 1.83 (0.85-1.17); PROTIME 20.6 SECONDS (11.6-15.0)
[2017-07-12 07:59] VITALS: BP 139/70
[2017-07-12 19:00] VITALS: BP 189/74
[2017-07-13 06:18] LABS: BASOPHILS 0.4 % (0-2); EOSINOPHILS 2.5 % (0-7); HEMATOCRIT 41.4 % (36.0-48.0); HEMOGLOBIN 14.5 g/dL (12-16); MCH 30.2 pg (26.0-34.0); MCV 86.3 fL (80.0-100.0); MEAN PLATELET VOLUME 10.8 fL (7.4-10.4); MONOCYTES 8.7 % (2-11); NEUTROPHILS 55.4 % (40-80); PLATELET COUNT 210 10x3/uL (130-400); RDW 13.2 % (11.5-14.5); WBC 7.2 10x3/uL (4.8-10.8)
[2017-07-13 06:32] LABS: ANION GAP 13.9 mmol/L (8-16); CALCIUM 9.1 mg/dL (8.5-10.1); CARBON DIOXIDE 24.9 mmol/L (21.0-32.0); CREATININE - SERUM 0.9 mg/dL (0.6-1.3); POTASSIUM - SERUM 3.8 mmol/L (3.5-5.1)
[2017-07-13 07:28] LABS: INR 1.79 (0.85-1.17); PROTIME 20.2 SECONDS (11.6-15.0)
[2017-07-13 08:36] VITALS: BP 155/80
[2017-07-14 06:10] LABS: INR 2.02 (0.85-1.17); PROTIME 22.2 SECONDS (11.6-15.0)
[2017-07-14 08:00] VITALS: BP 144/72
[2017-07-14 19:41] VITALS: BP 165/78
[2017-07-15 07:38] LABS: INR 2.33 (0.85-1.17); PROTIME 24.9 SECONDS (11.6-15.0)
[2017-07-15 07:58] VITALS: BP 160/67
[2017-07-15 20:40] VITALS: BP 126/75
[2017-07-16 05:22] LABS: BASOPHILS 0.5 % (0-2); HEMATOCRIT 38.4 % (36.0-48.0); HEMOGLOBIN 13.3 g/dL (12-16); IMMATURE GRANULOCYTES 0.2 % (0-5); LYMPHOCYTES 41.3 % (15-50); MCH 29.8 pg (26.0-34.0); MCHC 34.6 g/dL (31.0-37.0); MCV 86.1 fL (80.0-100.0); MEAN PLATELET VOLUME 10.8 fL (7.4-10.4); PLATELET COUNT 189 10x3/uL (130-400); RBC 4.46 10x6/uL (4.00-5.40); RDW 13.2 % (11.5-14.5); WBC 6.5 10x3/uL (4.8-10.8)
[2017-07-16 05:29] LABS: ANION GAP 13.8 mmol/L (8-16); CALCIUM 8.6 mg/dL (8.5-10.1); CARBON DIOXIDE 25.9 mmol/L (21.0-32.0); POTASSIUM - SERUM 3.7 mmol/L (3.5-5.1)
[2017-07-16 05:35] LABS: INR 2.39 (0.85-1.17); PROTIME 25.4 SECONDS (11.6-15.0)
[2017-07-16 07:45] VITALS: BP 153/61
[2017-07-16 19:00] VITALS: BP 146/68; BP 96/57
[2017-07-17 06:52] LABS: INR 2.26 (0.85-1.17); PROTIME 24.3 SECONDS (11.6-15.0)
[2017-07-17 08:05] VITALS: BP 102/87
[2017-07-17 19:00] VITALS: BP 112/66
[2017-07-18 07:43] LABS: INR 2.01 (0.85-1.17); PROTIME 22.2 SECONDS (11.6-15.0)
[2017-07-18 08:21] VITALS: BP 132/54
[2017-07-18 19:05] VITALS: BP 177/74
[2017-07-19 06:29] LABS: INR 2.09 (0.85-1.17); PROTIME 22.9 SECONDS (11.6-15.0)
[2017-07-19 07:33] VITALS: BP 163/62
[2017-07-19 19:15] VITALS: BP 119/62
[2017-07-20 05:51] LABS: BASOPHILS 0.3 % (0-2); EOSINOPHILS 2.4 % (0-7); HEMATOCRIT 38.2 % (36.0-48.0); HEMOGLOBIN 13.3 g/dL (12-16); IMMATURE GRANULOCYTES 0.1 % (0-5); LYMPHOCYTES 39.1 % (15-50); MCH 29.9 pg (26.0-34.0); MCHC 34.8 g/dL (31.0-37.0); MCV 85.8 fL (80.0-100.0); MEAN PLATELET VOLUME 10.3 fL (7.4-10.4); MONOCYTES 9.1 % (2-11); PLATELET COUNT 200 10x3/uL (130-400); RBC 4.45 10x6/uL (4.00-5.40); RDW 13.2 % (11.5-14.5); WBC 6.7 10x3/uL (4.8-10.8)
[2017-07-20 06:04] LABS: ANION GAP 12.5 mmol/L (8-16); CALCIUM 8.9 mg/dL (8.5-10.1); CREATININE - SERUM 0.9 mg/dL (0.6-1.3); POTASSIUM - SERUM 3.5 mmol/L (3.5-5.1)
[2017-07-20 06:31] LABS: INR 2.32 (0.85-1.17); PROTIME 24.8 SECONDS (11.6-15.0)
[2017-07-20 08:03] VITALS: BP 166/69
[2017-07-20 19:00] VITALS: BP 157/70
[2017-07-21 06:44] LABS: INR 2.13 (0.85-1.17); PROTIME 23.2 SECONDS (11.6-15.0)
[2017-07-21 07:00] VITALS: BP 167/68
[2017-07-21 19:38] VITALS: BP 161/71
[2017-07-22 07:58] LABS: INR 2.11 (0.85-1.17)
[2017-07-22 08:00] VITALS: BP 168/70
[2017-07-22 22:05] VITALS: BP 142/74
[2017-07-23 07:46] LABS: BASOPHILS 0.4 % (0-2); EOSINOPHILS 2.4 % (0-7); HEMATOCRIT 41.3 % (36.0-48.0); HEMOGLOBIN 14.4 g/dL (12-16); IMMATURE GRANULOCYTES 0.1 % (0-5); LYMPHOCYTES 38.5 % (15-50); MCH 29.9 pg (26.0-34.0); MCHC 34.9 g/dL (31.0-37.0); MCV 85.9 fL (80.0-100.0); MEAN PLATELET VOLUME 10.2 fL (7.4-10.4); NEUTROPHILS 50.6 % (40-80); PLATELET COUNT 203 10x3/uL (130-400); RBC 4.81 10x6/uL (4.00-5.40); RDW 13.1 % (11.5-14.5); WBC 7.1 10x3/uL (4.8-10.8)
[2017-07-23 08:00] VITALS: BP 155/66
[2017-07-23 08:04] LABS: ANION GAP 11.5 mmol/L (8-16); CALCIUM 9.1 mg/dL (8.5-10.1); CREATININE - SERUM 0.9 mg/dL (0.6-1.3); POTASSIUM - SERUM 3.5 mmol/L (3.5-5.1)
[2017-07-23 08:30] LABS: INR 2.23 (0.85-1.17)
[2017-07-23 20:09] VITALS: BP 145/62
[2017-07-24 06:40] LABS: INR 2.32 (0.85-1.17); PROTIME 24.8 SECONDS (11.6-15.0)
[2017-07-24 07:44] VITALS: BP 159/50
[2017-07-24 19:27] VITALS: BP 167/73
[2017-07-25 07:38] VITALS: BP 164/54
[2017-07-25 08:03] LABS: INR 2.34 (0.85-1.17)
== END 2017-07-25 13:17 | disposition home health service (06) | DRG 65 ==
LOC: D.REHAB 13:10 → D.SDCHOLD 16:03 → D.REHAB 16:03
PROVIDERS: Emergency Medicine
DX: I63.9 Cerebral infarction, unspecified (principal); G45.9 Transient cerebral ischemic attack, unspecified; N17.9 Acute kidney failure, unspecified; K92.2 Gastrointestinal hemorrhage, unspecified; R13.12 Dysphagia, oropharyngeal phase; R47.01 Aphasia; E78.5 Hyperlipidemia, unspecified; I48.91 Unspecified atrial fibrillation; R26.9 Unspecified abnormalities of gait and mobility; E03.9 Hypothyroidism, unspecified; E78.1 Pure hyperglyceridemia; I10 Essential (primary) hypertension; E11.9 Type 2 diabetes mellitus without complications; F32.9 Major depressive disorder, single episode, unspecified; F01.50 Vascular dementia, unspecified severity, without behavioral disturbance, psychotic disturbance, mood disturbance, and anxiety; G30.9 Alzheimer's disease, unspecified; F02.80 Dementia in other diseases classified elsewhere, unspecified severity, without behavioral disturbance, psychotic disturbance, mood disturbance, and anxiety

== ENCOUNTER 2018-07-27 07:08 | Emergency (ER) | payer MEDICARE ==
[~2018-07-27 07:08] MED LIST changes: +PROCARDIA XL PO
[2018-07-27 07:15] VITALS: BMI 34.4
[2018-07-27] MEDS ORDERED: PRADAXA75 MG PO (07:18)
[2018-07-27] MEDS ORDERED: CELEXA20 MG PO (07:18)
[2018-07-27] MEDS ORDERED: LASIX40 MG PO (07:20)
[2018-07-27] MEDS ORDERED: PROCARDIA10 MG PO (07:21)
[2018-07-27] MEDS ORDERED: PRAVACHOL40 MG PO (07:23)
[2018-07-27] MEDS ORDERED: ACCUPRIL40 MG PO (07:25)
[2018-07-27 08:06] LABS: BASOPHILS 0.3 % (0-2); EOSINOPHILS 2.9 % (0-7); HEMATOCRIT 43.1 % (36.0-48.0); HEMOGLOBIN 14.8 g/dL (12-16); IMMATURE GRANULOCYTES 0.1 % (0-5); LYMPHOCYTES 16.3 % (15-50); MCHC 34.3 g/dL (31.0-37.0); MCV 87.2 fL (80.0-100.0); MEAN PLATELET VOLUME 10.8 fL (7.4-10.4); MONOCYTES 7.1 % (2-11); NEUTROPHILS 73.3 % (40-80); PLATELET COUNT 187 10x3/uL (130-400); RBC 4.94 10x6/uL (4.00-5.40); RDW 13.3 % (11.5-14.5); WBC 11.6 10x3/uL (4.8-10.8)
[2018-07-27 08:13] LABS: APTT 40.7 SECONDS (22.8-39.4); INR 1.23 (0.85-1.17)
[2018-07-27 08:18] LABS: ALBUMIN 3.2 g/dL (3.4-5.0); ALKALINE PHOSPHATASE 104 U/L (46-116); ALT (SGPT) 38 U/L (10-68); BILIRUBIN - TOTAL 1.05 mg/dL (0.2-1.3); CALC OSMOLALITY 280 mosm/kg (275-300); CARBON DIOXIDE 29.5 mmol/L (21.0-32.0); CHLORIDE - SERUM 101 mmol/L (98-107); CREATININE - SERUM 0.8 mg/dL (0.6-1.3); POTASSIUM - SERUM 3.4 mmol/L (3.5-5.1); PROTEIN - SERUM 7.9 g/dL (6.4-8.2); SODIUM 138 mmol/L (136-145); UREA NITROGEN 12 mg/dL (7-18); eGFR NON AFRICAN AMERICAN 73 mL/min (90-120)
[2018-07-27 08:19] LABS: GLUCOSE 181 mg/dL (74-106)
[2018-07-27 08:35] LABS: CKMB 1.1 U/L (0.0-3.6); CREATINE KINASE 253 UL (21-215); PRO BNP 520 pg/mL (0-450)
[2018-07-27 08:39] LABS: TROPONIN-I 0.084 ng/mL (0.000-0.060)
[2018-07-27] MEDS ORDERED: OMNICEF300 MG PO (09:52)
[2018-07-27] MEDS ORDERED: FLUTICASONE PRO16 GM NASAL (09:52)
[2018-07-27 10:20] VITALS: BP 136/85
== END 2018-07-27 10:21 | disposition home or self-care (01) ==
LOC: D.ER 07:08
PROVIDERS: Family Medicine
DX: J01.90 Acute sinusitis, unspecified (principal); R74.8 Abnormal levels of other serum enzymes; J81.1 Chronic pulmonary edema